=== PATIENT | female | born 1960 | race Caucasian/White ===

== ENCOUNTER → 2016-03-05 | Outpatient (CLI) | payer BC ==
[2014-10-04 14:38] VITALS: BP 93/61
[~2016-03-05] MED LIST: ACET325T9 PO; ALLEGRA PO; CHOL2000 PO; IBUP200C9 PO; METH5TAB6 PO; OXYC-323 PO
--- NOTE | 2016-03-05 16:47 | KCIC ---
PROCEDURE Thyroid ultrasound. HISTORY Thyroid nodules. Thyrotoxicosis. TECHNIQUE Real-time ultrasound imaging of the thyroid gland is performed. COMPARISON Thyroid ultrasound, December 08, 2014. FINDINGS The right thyroid lobe measures 4.5 x 1.8 x 1.7 cm. The left thyroid lobe measures 3.6 x 1.4.2 cm. No hypervascularity is seen. Multinodular thyroid gland. Solid nodule in the upper right thyroid lobe measures 11 x 9 by 11 millimeters. The nodule is slightly smaller. Second solid nodule in the superior right thyroid lobe measures 12 x 8 x 9 millimeters. Also slightly smaller. Partially calcified nodule in the inferior right thyroid lobe measures 12 x 7 x 9 millimeters, not significantly changed. Solid nodule in the superior left thyroid lobe measures 17 x 10 by 21 millimeters. Nodule is unchanged. Solid nodule in the inferior left thyroid lobe measures 10 x 9 x 12 millimeters. Nodule is smaller. Large solid nodule of the isthmus and left thyroid lobe measures 32 x 17 x 20 millimeters. This nodule is not significantly changed. No new thyroid nodule is identified. IMPRESSION No significant change of multinodular thyroid gland. Electronically signed by: Jorge Perez MD (Mar 05, 2016 16:46:34)
== END | disposition home or self-care (01) ==
LOC: KCIC US 15:40
DX: E04.2 Nontoxic multinodular goiter (principal); E05.90 Thyrotoxicosis, unspecified without thyrotoxic crisis or storm
CPT/HCPCS: 76536